=== PATIENT | male | born 1960 | race Caucasian/White ===

== ENCOUNTER → 2021-01-30 | Outpatient (CLI) | payer MEDICARE, OTHER ==
[~2021-01-30] MED LIST: AMLODIPINE BESY10 MG PO; AMLODIPINE BESYL5 MG PO; ASPIRIN81 MG PO; ATORVASTATIN CA40 MG PO; CALCIUM CARBON500 MG PO; CARVEDILOL6.25 MG PO; CATAPRES 0.1MG0.1 MG PO; COREG 3.125M3.125 MG PO; COREG6.25 MG PO; COUMADIN5 MG PO; DILTIAZEM 24HR120 M1 PO; ELIQUIS5 MG PO; ETODOLAC500 MG PO; FLOMAX 0.4 MG0.4 MG PO; HYDRALAZINE HCL25 MG PO; KEPPRA 500 MG500 MG PO; LEVETIRACETAM1000 MG PO; LISINOPRIL5 MG PO; LOVENOX80 MG/0.8 SC; MAG-OX 400 TAB400 MG PO; MECLIZINE HCL25 MG PO; OMEPRAZOLE20 MG PO; PHOS-NAK PACKET1 EA PO; PLAVIX75 MG PO; POTASSIUM CHLO20 ME1 PO; PREDNISONE10 MG PO; SYMBICORT 160-1 INHA INH; VENTOLIN HFA 66.7 GM INH; VIMPAT10 MG/1 ML PO; VIMPAT50 MG PO; ZOFRAN4 MG PO
== END ==
LOC: EXRD 14:00 → US 14:00
DX: I65.23 Occlusion and stenosis of bilateral carotid arteries (principal); I63.9 Cerebral infarction, unspecified; I73.9 Peripheral vascular disease, unspecified
CPT/HCPCS: 93880; 93925

== ENCOUNTER 2021-02-04 23:29 | Emergency (ER) | payer MEDICARE, OTHER ==
[~2021-02-04 23:29] MED LIST changes: -AMLODIPINE BESYL5 MG PO; -CALCIUM CARBON500 MG PO; -CATAPRES 0.1MG0.1 MG PO; -COREG 3.125M3.125 MG PO; -HYDRALAZINE HCL25 MG PO; -KEPPRA 500 MG500 MG PO; -MAG-OX 400 TAB400 MG PO; -MECLIZINE HCL25 MG PO; -OMEPRAZOLE20 MG PO; -PHOS-NAK PACKET1 EA PO; -PREDNISONE10 MG PO; -SYMBICORT 160-1 INHA INH; -VENTOLIN HFA 66.7 GM INH; -VIMPAT10 MG/1 ML PO; -VIMPAT50 MG PO
[2021-02-05 00:18] LABS: HEMOGLOBIN 10.9 gm/dl (14.0-17.5); RED BLOOD COUNT 4.36 M/UL (4.20-5.50); WHITE BLOOD COUNT 10.3 K/UL (4.5-11.0)
[2021-02-05 00:39] LABS: BUN/CREATININE RATIO 8 (0-10)
[2021-02-22] MEDS ORDERED: CATAPRES 0.1MG0.1 MG PO (00:01)
== END 2021-02-05 04:03 | disposition short-term general hospital (02) ==
LOC: ER1 23:29
PROVIDERS: Family Medicine
DX: G40.909 Epilepsy, unspecified, not intractable, without status epilepticus (principal); J44.9 Chronic obstructive pulmonary disease, unspecified; I12.9 Hypertensive chronic kidney disease with stage 1 through stage 4 chronic kidney disease, or unspecified chronic kidney disease; N18.9 Chronic kidney disease, unspecified; Z87.891 Personal history of nicotine dependence; Z86.73 Personal history of transient ischemic attack (TIA), and cerebral infarction without residual deficits; Z86.79 Personal history of other diseases of the circulatory system; Z79.01 Long term (current) use of anticoagulants
CPT/HCPCS: 70450; 71045; 80053; 82550; 82553; 83874; 84439; 84443; 84484; 85025; 85610; 93005; 96374; 99285; G0480; J1953; J2060

== ENCOUNTER → 2021-02-10 | Outpatient (CLI) | payer MEDICARE, OTHER ==
[~2021-02-10] MED LIST changes: +AMLODIPINE BESYL5 MG PO; +CALCIUM CARBON500 MG PO; +CATAPRES 0.1MG0.1 MG PO; +COREG 3.125M3.125 MG PO; +HYDRALAZINE HCL25 MG PO; +KEPPRA 500 MG500 MG PO; +MAG-OX 400 TAB400 MG PO; +MECLIZINE HCL25 MG PO; +OMEPRAZOLE20 MG PO; +PHOS-NAK PACKET1 EA PO; +PREDNISONE10 MG PO; +SYMBICORT 160-1 INHA INH; +VENTOLIN HFA 66.7 GM INH; +VIMPAT10 MG/1 ML PO; +VIMPAT50 MG PO
== END ==
LOC: EMI 13:12
DX: I65.23 Occlusion and stenosis of bilateral carotid arteries (principal); M48.02 Spinal stenosis, cervical region; R93.89 Abnormal findings on diagnostic imaging of other specified body structures
CPT/HCPCS: 70547

== ENCOUNTER 2021-02-19 16:08 | Observation (INO) | payer MEDICARE, OTHER ==
[~2021-02-19] VITALS: Ht 180.3 cm; Wt 96.7 kg
[~2021-02-19 16:08] MED LIST changes: -AMLODIPINE BESYL5 MG PO; -CALCIUM CARBON500 MG PO; -CATAPRES 0.1MG0.1 MG PO; -COREG 3.125M3.125 MG PO; -HYDRALAZINE HCL25 MG PO; -KEPPRA 500 MG500 MG PO; -MAG-OX 400 TAB400 MG PO; -MECLIZINE HCL25 MG PO; -OMEPRAZOLE20 MG PO; -PHOS-NAK PACKET1 EA PO; -PREDNISONE10 MG PO; -SYMBICORT 160-1 INHA INH; -VENTOLIN HFA 66.7 GM INH; -VIMPAT10 MG/1 ML PO; -VIMPAT50 MG PO
[2021-02-19 16:56] LABS: HEMOGLOBIN 9.5 gm/dl (14.0-17.5); RED BLOOD COUNT 3.9 M/UL (4.20-5.50); WHITE BLOOD COUNT 8.3 K/UL (4.5-11.0)
[2021-02-19 17:27] LABS: BUN/CREATININE RATIO 8 (0-10)
[2021-02-19] MEDS ORDERED: VIMPAT50 MG PO (20:36)
[2021-02-19] MEDS ORDERED: PREDNISONE10 MG PO (22:37)
[2021-02-19] MEDS ORDERED: KEPPRA 500 MG500 MG PO (22:38)
[2021-02-19] MEDS ORDERED: COREG 3.125M3.125 MG PO (22:38)
[2021-02-19] MEDS ORDERED: OMEPRAZOLE20 MG PO (22:39)
[2021-02-19] MEDS ORDERED: SYMBICORT 160-1 INHA INH (23:23)
[2021-02-19] MEDS ORDERED: VENTOLIN HFA 66.7 GM INH (23:30)
[2021-02-20 03:28] LABS: HEMOGLOBIN 9.1 gm/dl (14.0-17.5); RED BLOOD COUNT 3.72 M/UL (4.20-5.50); WHITE BLOOD COUNT 8.2 K/UL (4.5-11.0)
[2021-02-21] MEDS ORDERED: VIMPAT10 MG/1 ML PO (11:17)
[2021-02-22] MEDS ORDERED: CATAPRES 0.1MG0.1 MG PO (00:01)
== END 2021-02-21 14:04 | disposition home or self-care (01) ==
LOC: ER1 16:08 → CDU 21:00 → M/S 21:00
PROVIDERS: Physician Assistant; Preventive Medicine Occupational Medicine; ADMIT Family Medicine
DX: I63.9 Cerebral infarction, unspecified (principal); G93.41 Metabolic encephalopathy; G40.909 Epilepsy, unspecified, not intractable, without status epilepticus; I48.0 Paroxysmal atrial fibrillation; I12.9 Hypertensive chronic kidney disease with stage 1 through stage 4 chronic kidney disease, or unspecified chronic kidney disease; N18.30 Chronic kidney disease, stage 3 unspecified; N40.0 Benign prostatic hyperplasia without lower urinary tract symptoms; R79.1 Abnormal coagulation profile; T45.515A Adverse effect of anticoagulants, initial encounter; E87.2 Acidosis; Z86.73 Personal history of transient ischemic attack (TIA), and cerebral infarction without residual deficits; Z20.822 Contact with and (suspected) exposure to COVID-19; Z87.891 Personal history of nicotine dependence; Z79.01 Long term (current) use of anticoagulants; Z79.52 Long term (current) use of systemic steroids; Z79.82 Long term (current) use of aspirin; Z79.899 Other long term (current) drug therapy
CPT/HCPCS: 0240U; 36415; 36600; 70450; 70551; 71045; 80053; 80307; 81001; 82140; 82550; 82553; 82803; 82962; 83605; 83690; 83874; 83880; 84484; 85025; 85027; 85610; 85652; 85730; 86140; 87086; 93005; 94760; 96374; 96375; 96376; 97161; 99285; G0378; G0480; J1953; J2060; J7030

== ENCOUNTER 2021-02-22 21:26 | Emergency (ER) | payer MEDICARE, OTHER ==
[~2021-02-22 21:26] MED LIST changes: +CATAPRES 0.1MG0.1 MG PO; +COREG 3.125M3.125 MG PO; +KEPPRA 500 MG500 MG PO; +OMEPRAZOLE20 MG PO; +PREDNISONE10 MG PO; +SYMBICORT 160-1 INHA INH; +VENTOLIN HFA 66.7 GM INH; +VIMPAT10 MG/1 ML PO; +VIMPAT50 MG PO
[2021-02-22 22:55] LABS: RED BLOOD COUNT 3.66 M/UL (4.20-5.50)
[2021-02-22 23:22] LABS: BUN/CREATININE RATIO 5 (0-10)
[2021-02-23] MEDS ORDERED: CATAPRES 0.1MG0.1 MG PO (00:57)
[2021-02-23] MEDS ORDERED: LISINOPRIL5 MG PO (00:58)
== END 2021-02-23 01:10 | disposition home or self-care (01) ==
LOC: ER1 21:26
PROVIDERS: Family Medicine
DX: I10 Essential (primary) hypertension (principal); R07.9 Chest pain, unspecified; F17.290 Nicotine dependence, other tobacco product, uncomplicated; Z86.73 Personal history of transient ischemic attack (TIA), and cerebral infarction without residual deficits
CPT/HCPCS: 80053; 82550; 82553; 83874; 84484; 85025; 93005; 99283

== ENCOUNTER 2021-02-24 15:18 | Inpatient (IN) | payer MEDICARE, OTHER ==
[~2021-02-24] VITALS: Ht 180.3 cm; Wt 90.7 kg
[2021-02-24 19:27] LABS: HEMOGLOBIN 9.4 gm/dl (14.0-17.5); RED BLOOD COUNT 3.82 M/UL (4.20-5.50); WHITE BLOOD COUNT 9.6 K/UL (4.5-11.0)
[2021-02-24 19:57] LABS: BUN/CREATININE RATIO 7 (0-10)
--- NOTE | 2021-02-25 17:36 | NUR ---
PATIENT C/O DIZZINESS AND RT ARM PAIN. MD SUAZO MADE AWARE, HE ASSESSED PATIENT. MEDICATION GIVEN FOR PAIN, KEPPRA PUT ON HOLD. MD AWARE OF PATIENT'S ISSUES, HOWEVER PATIENT AND FAMILY INSISTING ON GETTING A MEDICATION. DR SUAZO RE-NOTIFIED ABOUT DIZZINESS, BUT NO NEW ORDERS AT THIS TIME.
--- NOTE | 2021-02-25 20:44 | NUR ---
PT CALLED OUT FOR MEDICATION FOR NAUSEA. I CALLED DR. SUAZO AND HE ORDERED ZOFRAN 4 MG Q6H PRN NAUSEA/VOMITING. AT 1945 SEIZURE STARTED AND ENDED 1946 DURATION 1.5 MIN. OXYGEN APPLIED, BP 113/49 HR 100 O2 95% ON 2L N/C DR. ENRIQUEZ NOTIFIED, HE ASK I CALL DR. MUSE WHO SAW HIM TODAY. CALLED DR. MUSE, ORDER FOR VIMPAT 100MG BID, RESUME, KEPPRA 1,000MG BID TO BEGIN 01/26/21, ORDER LAB DRAW OF KEPPRA TOXICITY PRIOR TO FIRST DOSE. AND ATIVAN 1MG IVP PRN FOR SEIZURES: WITH INSTRUCTIONS TO GIVE IF HAVING A ACTIVE SEIZURE, DO NOT GIVE IF SEIZURE HAS STOPPED.
[2021-02-26 03:17] LABS: HEMOGLOBIN 9.6 gm/dl (14.0-17.5); RED BLOOD COUNT 3.93 M/UL (4.20-5.50); WHITE BLOOD COUNT 8.5 K/UL (4.5-11.0)
--- NOTE | 2021-02-26 03:43 | NUR ---
critical PT of 75.5 and critical INR of 8.[address] Peter. order to HOLD COUMADIN AT THIS TIME. Pt does has coumadin on his home medications, notified pharmacy of his critical levels and will report to dayshift nurse.
--- NOTE | 2021-02-26 05:22 | NUR ---
CRITICAL MAG 0.6 AND LOW K+3.2. NOTIFIED DR. MERIDA; ORDER FOR POTASSIUM AND MAG PROTOCAL AND TREAT.
[2021-02-27 03:14] LABS: HEMOGLOBIN 9.1 gm/dl (14.0-17.5); RED BLOOD COUNT 3.69 M/UL (4.20-5.50); WHITE BLOOD COUNT 7.6 K/UL (4.5-11.0)
[2021-02-28 04:51] LABS: HEMOGLOBIN 8.6 gm/dl (14.0-17.5); RED BLOOD COUNT 3.68 M/UL (4.20-5.50); WHITE BLOOD COUNT 8.5 K/UL (4.5-11.0)
[2021-03-01 03:05] LABS: RED BLOOD COUNT 3.82 M/UL (4.20-5.50); WHITE BLOOD COUNT 7.9 K/UL (4.5-11.0)
[2021-03-02 04:57] LABS: HEMOGLOBIN 9.9 gm/dl (14.0-17.5); RED BLOOD COUNT 4.08 M/UL (4.20-5.50); WHITE BLOOD COUNT 7.1 K/UL (4.5-11.0)
[2021-03-02] MEDS ORDERED: ELIQUIS5 MG PO (09:15)
[2021-03-02] MEDS ORDERED: AMLODIPINE BESYL5 MG PO (09:15)
[2021-03-02] MEDS ORDERED: MECLIZINE HCL25 MG PO (09:15)
[2021-03-02] MEDS ORDERED: VIMPAT10 MG/1 ML PO (09:15)
[2021-03-02] MEDS ORDERED: CALCIUM CARBON500 MG PO (09:21)
[2021-03-02] MEDS ORDERED: HYDRALAZINE HCL25 MG PO (09:21)
[2021-03-02] MEDS ORDERED: MAG-OX 400 TAB400 MG PO (09:21)
[2021-03-02] MEDS ORDERED: PHOS-NAK PACKET1 EA PO (10:12)
--- NOTE | 2021-03-02 11:14 | NUR ---
INSTRUCTED ON PICC LINE AND USE. SAFETY IN THE HOME. VERBALIXED UNDERSTANDING. GAVINO LAURENT R.N.
--- NOTE | 2021-03-02 12:12 | NUR ---
patient discharge order was put in at 0959. the patient was discharged to [facility] by private vehicle at 1150. patient finished last doses of magnesium iv ordered at 0845 and 0945. after the doses were finished i called report to the facility and alerted them that he would be on his way soon. after the patient was discharged and already left from our facility the md put in orders at 1159 for a covid test that was not redone prior to leaving and orders for hydralazine. the patient was no longer here at this time as the discharge was placed at 0959 and after his iv medications were finished he was sent to the facility.
== END 2021-03-02 11:59 | DRG 57 ==
LOC: ER1 15:18 → M/S 22:28 → CDU 22:28 → M/S 02-25 03:13
PROVIDERS: Emergency Medicine; Internal Medicine; Physician Assistant Medical; ADMIT Internal Medicine Infectious Disease
DX: I69.398 Other sequelae of cerebral infarction (principal); R42 Dizziness and giddiness; R53.1 Weakness; E83.51 Hypocalcemia; T42.6X5A Adverse effect of other antiepileptic and sedative-hypnotic drugs, initial encounter; E87.6 Hypokalemia; E83.42 Hypomagnesemia; I48.0 Paroxysmal atrial fibrillation; Z79.01 Long term (current) use of anticoagulants; E83.39 Other disorders of phosphorus metabolism; Z79.899 Other long term (current) drug therapy; Z79.82 Long term (current) use of aspirin; Z20.822 Contact with and (suspected) exposure to COVID-19; G40.909 Epilepsy, unspecified, not intractable, without status epilepticus; I73.9 Peripheral vascular disease, unspecified; I12.9 Hypertensive chronic kidney disease with stage 1 through stage 4 chronic kidney disease, or unspecified chronic kidney disease; N40.0 Benign prostatic hyperplasia without lower urinary tract symptoms; Z87.891 Personal history of nicotine dependence; Z95.820 Peripheral vascular angioplasty status with implants and grafts; N18.30 Chronic kidney disease, stage 3 unspecified
CPT/HCPCS: 36415; 70450; 70544; 70551; 71045; 80048; 80053; 82140; 82330; 82550; 82553; 82962; 83735; 83874; 83970; 84100; 84132; 84484; 85025; 85027; 85610; 85730; 93005; 94640; 94760; 96374; 97116-GP-CQ; 97162; 97165; 97530-GP-CQ; 99283; 99285; G0378; J0610; J1650; J2405; J3475; U0002

== ENCOUNTER 2021-05-20 04:06 | Emergency (ER) | payer MEDICARE ==
[~2021-05-20 04:06] MED LIST changes: +AMLODIPINE BESYL5 MG PO; +CALCIUM CARBON500 MG PO; +HYDRALAZINE HCL25 MG PO; +MAG-OX 400 TAB400 MG PO; +MECLIZINE HCL25 MG PO; +PHOS-NAK PACKET1 EA PO
== END 2021-05-20 06:05 | disposition home or self-care (01) ==
LOC: ER1 04:06
DX: I10 Essential (primary) hypertension (principal); J44.9 Chronic obstructive pulmonary disease, unspecified
CPT/HCPCS: 93005; 99283

== ENCOUNTER 2021-12-24 12:02 | Emergency (ER) | payer MEDICARE | END 2021-12-24 13:20 | disposition home or self-care (01) | LOC: ER1 12:02 | DX: I10 Essential (primary) hypertension (principal); G40.909 Epilepsy, unspecified, not intractable, without status epilepticus | CPT/HCPCS: 93005; 99283 ==

== ENCOUNTER → 2022-04-14 | Outpatient (CLI) | payer MEDICARE | LOC: CATH 09:30 → EDSTATUS 10:00 → CATH 10:00 | DX: R55 Syncope and collapse (principal); I65.23 Occlusion and stenosis of bilateral carotid arteries; I63.9 Cerebral infarction, unspecified; R42 Dizziness and giddiness ==